=== PATIENT | female | born 1980 | race Caucasian/White ===

== ENCOUNTER 2016-05-01 11:48 | Emergency (ER) | payer OTHER ==
--- NOTE | 2016-05-01 12:11 | ED NURSING NOTES ---
Clinical Report - Nurses [facility] [place] [address] 05/01/2016 11:48 Patient: SAVANNAH HASSAN TRIAGE Triage time 11:54. Acuity: LEVEL 4. Chief Complaint: LACERATION and (squirrel attack; pt. states a squirrel starting biting and scratching her.). Alert. No acute distress. SEPSIS SCREEN: Sepsis Screen. Negative (no infection suspected/documented). SIMONA COMA SCORE: [place] Coma Scale: 15- eyes open spontaneously (4); best verbal response- oriented x 4 (5); best motor response- obeys commands (6). --12:01 Jacquelyn Valencia R.N. 11:54 05/01/16. BP: 139/86. HR: 65. RR: 18. O2 saturation: 100%. Temp: 98.3 F. Pain level now 04/15. --12:01 Jacquelyn Valencia R.N. Weight: 56.6 kg stated. Height/Length: 60 inches Per Patient. BMI: 24.4. --11:59 Jacquelyn Valencia R.N. Medications Sertraline HCl Oral, daily. --12:00 Jacquelyn Valencia R.N. Nexplanon Subcutaneous. --12:00 Jacquelyn Valencia R.N. Allergies No Known Drug Allergy. --12:01 Jacquelyn Valencia R.N. History Arrived by private vehicle. Historian: patient. Accompanied by (girlfriend). Primary physician (Jessica). Location of injuries: right thumb, left index finger and left middle finger. This occurred today. Treatment SHANK THREADER: None. PAST MEDICAL HX: Tetanus status: unknown. Immunizations: status is unknown. SOCIAL HX: Light tobacco smoker (cigarette)- less than 1/2 a pack per day. Occasional alcohol use. No drug use. ABUSE ASSESSMENT: Abuse assessment: The patient was asked "Do you feel safe in your home?" and "Has anyone hurt you or threatened to hurt you?". No report of abuse. NUTRITIONAL RISK ASSESSMENT: The nutritional risk assessment revealed no deficiencies. FUNCTIONAL ASSESSMENT: Functional assessment: no impairments noted. LEARNING NEEDS ASSESSMENT: The learning needs assessment revealed no barriers. --12:01 Jacquelyn Valencia R.N. PROBLEMS: Animal Bite. --12: Jacquelyn Valencia R.N. Interventions ID band on patient. Ambulatory. --12: Jacquelyn Valencia R.N. PHYSICAL ASSESSMENT Ambulatory to room. GENERAL / NEURO / PSYCH: Alert. Appears in no acute distress. RESPIRATORY: Respirations not labored. CVS: Capillary refill less than 2 seconds. SKIN: Skin is warm and dry. Multiple lacerations; (on the left hand and single laceration on the right hand). --12:02 Jacquelyn Valencia R.N. NURSING PROGRESS NOTES Two patient identifiers checked. Call light placed in reach. Side rails up x 2. Bed placed in lowest position. Brakes of bed on. Patient ready for evaluation- chart flagged. --12:02 Jacquelyn Valencia R.N. ( irrigating wounds with hibiclens). --12:02 Jacquelyn Valencia R.N. 12:13 05/01/2016 Augmentin (Amoxicillin-Pot Clavulanate) PO 875 mg given. Allergies verified and confirmed 5 rights. --12:13 Jacquelyn Valencia R.N. Applied dressing consisting of 4x4 gauze, following the application of antibiotic ointment (bacitracin). Secured with tube gauze (right middle finger). --12:31 Criselda Atwood. DISPOSITION / DISCHARGE 12:25. Condition at departure: improved. No learning barriers present. Discharge instructions provided and reviewed with crusher and blender operator and the patient. Reviewed medication(s) side effects, precautions, dosing and course information. Prescription(s) given to the patient. Reviewed wound care instructions. Patient verbalized understanding. Written instructions provided in [place]. The patient was discharged home and accompanied by crusher and blender operator. She left the Emergency Department ambulatory and via private vehicle. Telecom Manager driving. Medication list reviewed and validated. --12:47 Kelsi Owusu R.N. 11:54 05/01/16. BP: 139/86. HR: 65. RR: 18. O2 saturation: 100%. Temp: 98.3 F. Pain level now 3/10. --12:47 Kelsi Owusu R.N. Locked/Released at 05/01/2016 12:47 by Kelsi Owusu R.N.
--- NOTE | 2016-05-01 12:11 | ED CLINICAL REPORT ---
Clinical Report - Physicians/Mid Levels [facility] [address] [place] [address] 05/01/2016 11:48 Patient: SAVANNAH HASSAN Time Seen: 12:17 May 01 2016. Arrived- By private vehicle. Historian- patient. HISTORY OF PRESENT ILLNESS Chief Complaint: (animal bite at work). This started just prior to arrival and is still present. It is described as painful. It has been located on the right upper extremity and left upper extremity. (patient was attacked at work by a squirrel, the incident occurred just prior to arrival. Tdap up to date. The animal has been monitored for a few days. The patient is RHD. No prior injury to main laceration for left middle finger. Denies other injuries.). REVIEW OF SYSTEMS No fever, cough, eye irritation, nausea or difficulty with urination. All systems otherwise negative, except as recorded above. PAST HISTORY Tetanus immunization status is up-to-date. SOCIAL HISTORY Smoker- current status unknown. Alcohol use. ADDITIONAL NOTES The nursing notes have been reviewed. PHYSICAL EXAM Vital Signs: 05/01/2016 11:54 BP: 139/86. HR: 65. RR: 18. O2 saturation: 100%. Temp: 98.3 F. Appearance: Alert. ENT: Ears normal. Nose normal. Neck: Neck supple. No lymphadenopathy. CVS: Normal heart rate and rhythm. Heart sounds normal. Respiratory: No respiratory distress. Breath sounds normal. Chest nontender. Skin: Skin warm. (left hand lac , left 3rd digit at pip 1 cm well approximated, no visible fb, no signs of erythema, no drainage. Full distal sensation, full distal rom. Left dorsal surface index finger small superficial lac, thenar R. hand small superficial abrasion. non tender). PROGRESS AND PROCEDURES Course of Care: Pt in the er with a lac to left 3rd digit with well approximated. Pt stable. Pt to f/u outpatient. AT this time given animal bite will not suture digit, cover with abx. Pt stable Tdap up to date. NO signs of fb, no signs of acute infection. Patient is stable. Symptoms better. Patient/family counseled. Disposition: Discharged. Condition: good. CLINICAL IMPRESSION Deep nonvenomous snake bite (left middle/ thumb, and right hand). INSTRUCTIONS (keep left middle finger straight for 48 hours may take dressing off and apply bacitracin apply bacitracin twice daily to other dressing). Warnings: Further evaluation is necessary (wound check with pcp 3 days). Prescription Medications: Augmentin 875 mg: take 1 tablet orally every 12 hours. No refill. Follow-up: Follow up with your doctor in three days. (Electronically signed by Skye Echeverria P.A.-C 05/01/2016 12:23) Addenda for SAVANNAH HASSAN VisitID: [id number] Date: 05/01/2016 05/01/2016 12:26 DX: this a non venomous bite, not a snake bite (Electronically signed by Skye Echeverria P.A.-C - 05/01/2016 12:26)
--- NOTE | 2016-05-01 12:11 | ED NURSING NOTES ---
Clinical Report - Nurses [facility] [place] [address] [address] 05/01/2016 11:48 Patient: SAVANNAH HASSAN TRIAGE Triage time 11:54. Acuity: LEVEL 4. Chief Complaint: LACERATION and (squirrel attack; pt. states a squirrel starting biting and scratching her.). Alert. No acute distress. SEPSIS SCREEN: Sepsis Screen. Negative (no infection suspected/documented). SIMONA COMA SCORE: [place] Coma Scale: 15- eyes open spontaneously (4); best verbal response- oriented x 4 (5); best motor response- obeys commands (6). --12:01 Jacquelyn Valencia R.N. 11:54 05/01/16. BP: 139/86. HR: 65. RR: 18. O2 saturation: 100%. Temp: 98.3 F. Pain level now 04/15. --12:01 Jacquelyn Valencia R.N. Weight: 56.6 kg stated. Height/Length: 60 inches Per Patient. BMI: 24.4. --11:59 Jacquelyn Valencia R.N. Medications Sertraline HCl Oral, daily. --12:00 Jacquelyn Valencia R.N. Nexplanon Subcutaneous. --12:00 Jacquelyn Valencia R.N. Allergies No Known Drug Allergy. --12:01 Jacquelyn Valencia R.N. History Arrived by private vehicle. Historian: patient. Accompanied by (girlfriend). Primary physician (Jessica). Location of injuries: right thumb, left index finger and left middle finger. This occurred today. Treatment QA TEST ANALYST: None. PAST MEDICAL HX: Tetanus status: unknown. Immunizations: status is unknown. SOCIAL HX: Light tobacco smoker (cigarette)- less than 1/2 a pack per day. Occasional alcohol use. No drug use. ABUSE ASSESSMENT: Abuse assessment: The patient was asked "Do you feel safe in your home?" and "Has anyone hurt you or threatened to hurt you?". No report of abuse. NUTRITIONAL RISK ASSESSMENT: The nutritional risk assessment revealed no deficiencies. FUNCTIONAL ASSESSMENT: Functional assessment: no impairments noted. LEARNING NEEDS ASSESSMENT: The learning needs assessment revealed no barriers. --12:01 Jacquelyn Valencia R.N. PROBLEMS: Animal Bite. --12: Jacquelyn Valencia R.N. Interventions ID band on patient. Ambulatory. --12: Jacquelyn Valencia R.N. PHYSICAL ASSESSMENT Ambulatory to room. GENERAL / NEURO / PSYCH: Alert. Appears in no acute distress. RESPIRATORY: Respirations not labored. CVS: Capillary refill less than 2 seconds. SKIN: Skin is warm and dry. Multiple lacerations; (on the left hand and single laceration on the right hand). --12:02 Jacquelyn Valencia R.N. NURSING PROGRESS NOTES Two patient identifiers checked. Call light placed in reach. Side rails up x 2. Bed placed in lowest position. Brakes of bed on. Patient ready for evaluation- chart flagged. --12:02 Jacquelyn Valencia R.N. ( irrigating wounds with hibiclens). --12:02 Jacquelyn Valencia R.N. 12:13 05/01/2016 Augmentin (Amoxicillin-Pot Clavulanate) PO 875 mg given. Allergies verified and confirmed 5 rights. --12:13 Jacquelyn Valencia R.N. Applied dressing consisting of 4x4 gauze, following the application of antibiotic ointment (bacitracin). Secured with tube gauze (right middle finger). --12:31 Criselda Atwood. DISPOSITION / DISCHARGE 12:25. Condition at departure: improved. No learning barriers present. Discharge instructions provided and reviewed with assembly press operator and the patient. Reviewed medication(s) side effects, precautions, dosing and course information. Prescription(s) given to the patient. Reviewed wound care instructions. Patient verbalized understanding. Written instructions provided in Dutch. The patient was discharged home and accompanied by assembly press operator. She left the Emergency Department ambulatory and via private vehicle. Footwear Sales Leader driving. Medication list reviewed and validated. --12:47 Kelsi Owusu R.N. 11:54 05/01/16. BP: 139/86. HR: 65. RR: 18. O2 saturation: 100%. Temp: 98.3 F. Pain level now 3/10. --12:47 Kelsi Owusu R.N. Locked/Released at 05/01/2016 12:47 by Kelsi Owusu R.N.
--- NOTE | 2016-05-01 12:11 | ED ORDER SUMMARY ---
..... Patient: SAVANNAH HASSAN OrderSheet [facility] VisitID: [id number] [address] [place] [address] 35y, F Registration Date/Time: 05/01/2016 ORDER SHEET Weight: 56.6 kg (stated) Allergies: No Known Drug Allergy GENERAL ORDERS: MEDICATION ORDERS: Augmentin PO 875 mg (NOW) (12:03 05/01/2016 Patrizia Cohen) ([facility] 12:11 Randi R.N.) (12:13 Randi R.N.) IV FLUIDS: ORDER SHEET NOTES: [Electronically signed by Skye Echeverria P.A.-C (12:23 05/01/2016)] [Electronically signed by Kelsi Owusu R.N. (12:47 05/01/2016)] [Electronically locked/signed by Kelsi Owusu R.N. (12:47 05/01/2016)]
--- NOTE | 2016-05-01 12:11 | ED ORDER SUMMARY ---
..... Patient: SAVANNAH HASSAN OrderSheet [facility] VisitID: [id number] [address] [place] [address] 35y, F Registration Date/Time: 05/01/2016 ORDER SHEET Weight: 56.6 kg (stated) Allergies: No Known Drug Allergy GENERAL ORDERS: MEDICATION ORDERS: Augmentin PO 875 mg (NOW) (12:03 05/01/2016 Patrizia Cohen) ([facility] 12:11 Randi R.N.) (12:13 Randi R.N.) IV FLUIDS: ORDER SHEET NOTES: [Electronically signed by Skye Echeverria P.A.-C (12:23 05/01/2016)] [Electronically signed by Kelsi Owusu R.N. (12:47 05/01/2016)] [Electronically locked/signed by Kelsi Owusu R.N. (12:47 05/01/2016)]
--- NOTE | 2016-05-01 12:11 | ED CLINICAL REPORT ---
Clinical Report - Physicians/Mid Levels [facility] [address] [place] [address] 05/01/2016 11:48 Patient: SAVANNAH HASSAN Time Seen: 12:17 May 01 2016. Arrived- By private vehicle. Historian- patient. HISTORY OF PRESENT ILLNESS Chief Complaint: (animal bite at work). This started just prior to arrival and is still present. It is described as painful. It has been located on the right upper extremity and left upper extremity. (patient was attacked at work by a squirrel, the incident occurred just prior to arrival. Tdap up to date. The animal has been monitored for a few days. The patient is RHD. No prior injury to main laceration for left middle finger. Denies other injuries.). REVIEW OF SYSTEMS No fever, cough, eye irritation, nausea or difficulty with urination. All systems otherwise negative, except as recorded above. PAST HISTORY Tetanus immunization status is up-to-date. SOCIAL HISTORY Smoker- current status unknown. Alcohol use. ADDITIONAL NOTES The nursing notes have been reviewed. PHYSICAL EXAM Vital Signs: 05/01/2016 11:54 BP: 139/86. HR: 65. RR: 18. O2 saturation: 100%. Temp: 98.3 F. Appearance: Alert. ENT: Ears normal. Nose normal. Neck: Neck supple. No lymphadenopathy. CVS: Normal heart rate and rhythm. Heart sounds normal. Respiratory: No respiratory distress. Breath sounds normal. Chest nontender. Skin: Skin warm. (left hand lac , left 3rd digit at pip 1 cm well approximated, no visible fb, no signs of erythema, no drainage. Full distal sensation, full distal rom. Left dorsal surface index finger small superficial lac, thenar R. hand small superficial abrasion. non tender). PROGRESS AND PROCEDURES Course of Care: Pt in the er with a lac to left 3rd digit with well approximated. Pt stable. Pt to f/u outpatient. AT this time given animal bite will not suture digit, cover with abx. Pt stable Tdap up to date. NO signs of fb, no signs of acute infection. Patient is stable. Symptoms better. Patient/family counseled. Disposition: Discharged. Condition: good. CLINICAL IMPRESSION Deep nonvenomous snake bite (left middle/ thumb, and right hand). INSTRUCTIONS (keep left middle finger straight for 48 hours may take dressing off and apply bacitracin apply bacitracin twice daily to other dressing). Warnings: Further evaluation is necessary (wound check with pcp 3 days). Prescription Medications: Augmentin 875 mg: take 1 tablet orally every 12 hours. No refill. Follow-up: Follow up with your doctor in three days. (Electronically signed by Skye Echeverria P.A.-C 05/01/2016 12:23) Addenda for SAVANNAH HASSAN VisitID: [id number] Date: 05/01/2016 05/01/2016 12:26 DX: this a non venomous bite, not a snake bite (Electronically signed by Skye Echeverria P.A.-C - 05/01/2016 12:26)
--- NOTE | 2016-05-01 12:47 | ED DISCHARGE INSTRUCTIONS ---
Patient: SAVANNAH HASSAN General Instructions [facility] VisitID: [id number] [place] [address] 35y, F Registration Date/Time: 05/01/2016 Deep nonvenomous snake bite (left middle/ thumb, and right hand). INSTRUCTIONS (keep left middle finger straight for 48 hours may take dressing off and apply bacitracin apply bacitracin twice daily to other dressing). Warnings: Further evaluation is necessary (wound check with pcp 3 days). Prescription Medications: Augmentin 875 mg: take 1 tablet orally every 12 hours. No refill. Follow-up: Follow up with your doctor in three days. ADDITIONAL INFORMATION Animal Bite, General If you have been bitten by an animal and the wound is deep enough to break the skin, an infection may occur. Therefore, watch for the warning signs listed below. If a cut (laceration) was present, the doctor may not close the wound completely. This is to allow fluid to drain in the event of an infection. Home Care: Watch the wound for signs of infection listed below which may begin within6 hours after the bite and progress rapidly. In certain types of bites, antibiotics may be prescribed. Begin taking these as soon as possible until they are all gone. Rabies Prevention If you live in an area where rabies occurs in the wild animals, if you were bitten by a dog, cat, skunk, raccoon, asher, coyote, bobcat, woodchuck, bat, or other meat-eating animal, there may be some risk to you of getting the rabies virus. If a healthy-looking pet dog or cat has bitten you, it should be kept in a secure area for the next 10 days to watch for signs of illness. (If the pet manager corporate strategy wont cooperate with you, contact the animal control department.) If the dog or cat becomes ill or dies during that time, contact your county animal control department at once so the animal may be tested for rabies. If the pet stays healthy for the next10 days, there is no danger of rabies in the animal or you. Pets fully vaccinated against rabies (2 shots) are at very low risk of infection; however, because human rabies is almost always fatal,any biting pet should be confined for10 days as an extra precaution. If astray pet bit you, contact the animal control department. They can provide information on capture, quarantine, and animal rabies testing. If you are unable to locate the animal that bit you in the next2 days, and if rabies exists in your region, you must be evaluated for the rabies vaccine series. Contact your doctor or return here promptly. All animal bites should be reported to the [facility] animal control department. If you were not given a form to fill out, you can report this yourself. Follow Up with your doctor or this facility as directed. Most skin wounds heal [id number] days. However, an infection may occur even with proper treatment. Check your wound every 6 hours for the first 2 days, then at least once a day for the next several days for the signs of infection listed below. Get Prompt Medical Attention if any of the following occur: Signs of infection: Spreading redness from the wound Increased pain or swelling Fever of 100.4F (38C) or higher, or as directed by your healthcare provider Colored fluid or pus draining from the wound Headache, confusion, strange behavior, or seizure (signs of a rabies infection) Amoxicillin Trihydrate, Clavulanate Potassium Oral tablet What is this medicine? AMOXICILLIN; CLAVULANIC ACID (a mox i STACEY in; CHRISTOPHER forrest barak ic id) is a penicillin antibiotic. It is used to treat certain kinds of bacterial infections. It will not work for colds, flu, or other viral infections. How should I use this medicine? Take this medicine by mouth with a full glass of water. Follow the directions on the prescription label. Take at the start of a meal. Do not crush or chew. If the tablet has a score line, you may cut it in half at the score line for easier swallowing. Take your medicine at regular intervals. Do not take your medicine more often than directed. Take all of your medicine as directed even if you think you are better. Do not skip doses or stop your medicine early. Talk to your steam engineer regarding the use of this medicine in children. Special care may be needed. What side effects may I notice from receiving this medicine? Side effects that you should report to your doctor or health body care manager as soon as possible: allergic reactions like skin rash, itching or hives, swelling of the face, lips, or tongue breathing problems dark urine fever or chills, sore throat redness, blistering, peeling or loosening of the skin, including inside the mouth seizures trouble passing urine or change in the amount of urine unusual bleeding, bruising unusually weak or tired white patches or sores in the mouth or throat Side effects that usually do not require medical attention (report to your doctor or health body care manager if they continue or are bothersome): diarrhea dizziness headache nausea, vomiting stomach upset vaginal or anal irritation What may interact with this medicine? allopurinol anticoagulants control pills methotrexate probenecid What if I miss a dose? If you miss a dose, take it as soon as you can. If it is almost time for your next dose, take only that dose. Do not take double or extra doses. Where should I keep my medicine? Keep out of the reach of children. Store at room temperature below 25 degrees C (77 degrees F). Keep container tightly closed. Throw away any unused medicine after the expiration date. What should I tell my health care provider before I take this medicine? They need to know if you have any of these conditions: bowel disease, like colitis kidney disease liver disease mononucleosis an unusual or allergic reaction to amoxicillin, penicillin, cephalosporin, other antibiotics, clavulanic acid, other medicines, foods, dyes, or preservatives or trying to get breast-feeding What should I watch for while using this medicine? Tell your doctor or health body care manager if your symptoms do not improve. Do not treat diarrhea with over the counter products. Contact your doctor if you have diarrhea that lasts more than 2 days or if it is severe and watery. If you have diabetes, you may get a false-positive result for sugar in your urine. Check with your doctor or health body care manager. control pills may not work properly while you are taking this medicine. Talk to your doctor about using an extra method of control. You have been given the following additional information: Animal Bite, General Amoxicillin Trihydrate, Clavulanate Potassium Oral tablet (Electronically signed by Skye Echeverria P.A.-C 05/01/2016 12:23)
--- NOTE | 2016-05-01 12:47 | ED DISCHARGE INSTRUCTIONS ---
Patient: SAVANNAH HASSAN [facility] VisitID: [id number] [place] [address] 35y, F Registration Date/Time: 05/01/2016 Deep nonvenomous snake bite (left middle/ thumb, and right hand). INSTRUCTIONS (keep left middle finger straight for 48 hours may take dressing off and apply bacitracin apply bacitracin twice daily to other dressing). Warnings: Further evaluation is necessary (wound check with pcp 3 days). Prescription Medications: Augmentin 875 mg: take 1 tablet orally every 12 hours. No refill. Follow-up: Follow up with your doctor in three days. ADDITIONAL INFORMATION Animal Bite, General If you have been bitten by an animal and the wound is deep enough to break the skin, an infection may occur. Therefore, watch for the warning signs listed below. If a cut (laceration) was present, the doctor may not close the wound completely. This is to allow fluid to drain in the event of an infection. Home Care: Watch the wound for signs of infection listed below which may begin within6 hours after the bite and progress rapidly. In certain types of bites, antibiotics may be prescribed. Begin taking these as soon as possible until they are all gone. Rabies Prevention If you live in an area where rabies occurs in the wild animals, if you were bitten by a dog, cat, skunk, raccoon, asher, coyote, bobcat, woodchuck, bat, or other meat-eating animal, there may be some risk to you of getting the rabies virus. If a healthy-looking pet dog or cat has bitten you, it should be kept in a secure area for the next 10 days to watch for signs of illness. (If the pet astronaut mission specialist wont cooperate with you, contact the animal control department.) If the dog or cat becomes ill or dies during that time, contact your county animal control department at once so the animal may be tested for rabies. If the pet stays healthy for the next10 days, there is no danger of rabies in the animal or you. Pets fully vaccinated against rabies (2 shots) are at very low risk of infection; however, because human rabies is almost always fatal,any biting pet should be confined for10 days as an extra precaution. If astray pet bit you, contact the animal control department. They can provide information on capture, quarantine, and animal rabies testing. If you are unable to locate the animal that bit you in the next2 days, and if rabies exists in your region, you must be evaluated for the rabies vaccine series. Contact your doctor or return here promptly. All animal bites should be reported to the [facility] animal control department. If you were not given a form to fill out, you can report this yourself. Follow Up with your doctor or this facility as directed. Most skin wounds heal [id number] days. However, an infection may occur even with proper treatment. Check your wound every 6 hours for the first 2 days, then at least once a day for the next several days for the signs of infection listed below. Get Prompt Medical Attention if any of the following occur: Signs of infection: Spreading redness from the wound Increased pain or swelling Fever of 100.4F (38C) or higher, or as directed by your healthcare provider Colored fluid or pus draining from the wound Headache, confusion, strange behavior, or seizure (signs of a rabies infection) Amoxicillin Trihydrate, Clavulanate Potassium Oral tablet What is this medicine? AMOXICILLIN; CLAVULANIC ACID (a mox i STACEY in; CHRISTOPHER forrest barak ic id) is a penicillin antibiotic. It is used to treat certain kinds of bacterial infections. It will not work for colds, flu, or other viral infections. How should I use this medicine? Take this medicine by mouth with a full glass of water. Follow the directions on the prescription label. Take at the start of a meal. Do not crush or chew. If the tablet has a score line, you may cut it in half at the score line for easier swallowing. Take your medicine at regular intervals. Do not take your medicine more often than directed. Take all of your medicine as directed even if you think you are better. Do not skip doses or stop your medicine early. Talk to your associate team physician regarding the use of this medicine in children. Special care may be needed. What side effects may I notice from receiving this medicine? Side effects that you should report to your doctor or health progressive care unit registered nurse as soon as possible: allergic reactions like skin rash, itching or hives, swelling of the face, lips, or tongue breathing problems dark urine fever or chills, sore throat redness, blistering, peeling or loosening of the skin, including inside the mouth seizures trouble passing urine or change in the amount of urine unusual bleeding, bruising unusually weak or tired white patches or sores in the mouth or throat Side effects that usually do not require medical attention (report to your doctor or health progressive care unit registered nurse if they continue or are bothersome): diarrhea dizziness headache nausea, vomiting stomach upset vaginal or anal irritation What may interact with this medicine? allopurinol anticoagulants control pills methotrexate probenecid What if I miss a dose? If you miss a dose, take it as soon as you can. If it is almost time for your next dose, take only that dose. Do not take double or extra doses. Where should I keep my medicine? Keep out of the reach of children. Store at room temperature below 25 degrees C (77 degrees F). Keep container tightly closed. Throw away any unused medicine after the expiration date. What should I tell my health care provider before I take this medicine? They need to know if you have any of these conditions: bowel disease, like colitis kidney disease liver disease mononucleosis an unusual or allergic reaction to amoxicillin, penicillin, cephalosporin, other antibiotics, clavulanic acid, other medicines, foods, dyes, or preservatives or trying to get breast-feeding What should I watch for while using this medicine? Tell your doctor or health progressive care unit registered nurse if your symptoms do not improve. Do not treat diarrhea with over the counter products. Contact your doctor if you have diarrhea that lasts more than 2 days or if it is severe and watery. If you have diabetes, you may get a false-positive result for sugar in your urine. Check with your doctor or health progressive care unit registered nurse. control pills may not work properly while you are taking this medicine. Talk to your doctor about using an extra method of control. You have been given the following additional information: Animal Bite, General Amoxicillin Trihydrate, Clavulanate Potassium Oral tablet (Electronically signed by Skye Echeverria P.A.-C 05/01/2016 12:23)
--- NOTE | 2016-05-01 12:47 | ED MED RECONCILIATION SUMMARY ---
Patient: SAVANNAH HASSAN Medication Reconciliation Report [facility] VisitID: [id number] [address] [place] [address] 35y, F Registration Date/Time: 05/01/2016 Weight: 56.6 kg Height/Length: 60 in. BMI: 24.4 ALLERGIES: No Known Drug Allergy The patient's Home Medications are listed below: THE FOLLOWING MEDICATIONS NEED TO BE RECONCILED: Nexplanon Subcutaneous Sertraline HCl Oral, daily The source(s) of the original Home Medication information: Not obtained. The following Medications were given to the patient in the Emergency Department: Augmentin [PO] PO 875 mg, administered: 05/01/2016 12:13:00 PM The following Medications were prescribed to the patient: Augmentin 875 mg: take 1 tablet orally every 12 hours. No refill. -- Skye Echeverria PNyasiaANyasia-C
--- NOTE | 2016-05-01 12:47 | ED MAR SUMMARY ---
..... Medication Administration Record [facility] [address] [place] [address] Patient: SAVANNAH HASSAN Visit ID: [id number] 35y, F Weight: 56.6 kg Height/Length: 60 in BMI: 24.4 ALLERGIES: No Known Drug Allergy Given 12:13 05/01/2016 Jacquelyn Valencia RNyasiaNNyasia Medication Administered: AUGMENTIN [PO] (AMOXICILLIN-POT CLAVULANATE), Dose: 875 mg PO. Medication Ordered: Augmentin PO 875 mg (NOW).
--- NOTE | 2016-05-01 12:47 | ED MED RECONCILIATION SUMMARY ---
Patient: SAVANNAH HASSAN Medication Reconciliation Report [facility] VisitID: [id number] [address] [place] [address] 35y, F Registration Date/Time: 05/01/2016 Weight: 56.6 kg Height/Length: 60 in. BMI: 24.4 ALLERGIES: No Known Drug Allergy The patient's Home Medications are listed below: THE FOLLOWING MEDICATIONS NEED TO BE RECONCILED: Nexplanon Subcutaneous Sertraline HCl Oral, daily The source(s) of the original Home Medication information: Not obtained. The following Medications were given to the patient in the Emergency Department: Augmentin [PO] PO 875 mg, administered: 05/01/2016 12:13:00 PM The following Medications were prescribed to the patient: Augmentin 875 mg: take 1 tablet orally every 12 hours. No refill. -- Skye Echeverria PNyasiaANyasia-C
--- NOTE | 2016-05-01 12:47 | ED MAR SUMMARY ---
..... Medication Administration Record [facility] [address] [place] [address] Patient: SAVANNAH HASSAN Visit ID: [id number] 35y, F Weight: 56.6 kg Height/Length: 60 in BMI: 24.4 ALLERGIES: No Known Drug Allergy Given 12:13 05/01/2016 Jacquelyn Valencia RNyasiaNNyasia Medication Administered: AUGMENTIN [PO] (AMOXICILLIN-POT CLAVULANATE), Dose: 875 mg PO. Medication Ordered: Augmentin PO 875 mg (NOW).
== END 2016-05-01 12:25 | disposition home or self-care (01) ==
LOC: ED SRH 11:48
DX: S61.253A Open bite of left middle finger without damage to nail, initial encounter (principal); S61.052A Open bite of left thumb without damage to nail, initial encounter; S60.571A Other superficial bite of hand of right hand, initial encounter; W53.21XA Bitten by squirrel, initial encounter; Y92.89 Other specified places as the place of occurrence of the external cause; Y93.K9 Activity, other involving animal care; Y99.0 Civilian activity done for income or pay